=== PATIENT | male | born 1980 | race Caucasian/White ===

== ENCOUNTER 2019-03-21 10:59 | Emergency (ER) | payer OTHER, BC ==
[2019-03-21] MEDS ORDERED: NORMAL SALINE 1000 ML 1,000 ML IV ONE (11:29)
[2019-03-21] MEDS ORDERED: KETOROLAC TROMETHAMINE INJ/PF 30 MG/1 ML SDV IV ONE (11:29)
--- NOTE | 2019-03-21 11:30 | ER Document Report ---
ED Medical Screen (RME) - General Chief Complaint: Flank Pain Stated Complaint: BACK/GROIN PAIN Time Seen by Provider: 03/21/19 11:27 Mode of Arrival: Ambulatory Information source: Patient Notes: 39-year-old male presents to ED for complaint of left flank and groin pain since midnight. He states he had some similar 10 days ago and the time he had prostate-itis and was started on Cipro for 7 days. He states the pain went away but 3 or 4 days after he completed the medicine he came back and is not worse. He is alert oriented respirations regular and unlabored speaking in full sentences. He does have a history of an appendectomy and arthritis. 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 He is alert oriented respirations regular and unlabored with a lot of left flank and groin pain. I have greeted and performed a rapid initial assessment of this patient. A comprehensive ED assessment and evaluation of the patient, analysis of test results and completion of medical decision making process will be conducted by an additional ED providers. Dictation of this chart was performed using voice recognition software; therefore, there may be some unintended grammatical errors. TRAVEL OUTSIDE OF THE [place] IN LAST 30 DAYS: No - Related Data Allergies/Adverse Reactions: No Known Allergies Allergy (Unverified 03/21/19 11:15) Past Medical History - Social History Frequency of alcohol use: None Drug Abuse: None Renal/ Medical History: Denies: Hx Peritoneal Dialysis Physical Exam - Vital signs Vitals: Temp Pulse Resp BP Pulse Ox 97.9 F 58 L 18 171/90 H 98 03/21/19 11:26 03/21/19 11:26 03/21/19 11:26 03/21/19 11:26 03/21/19 11:26 Course - Vital Signs Vital signs: Temp Pulse Resp BP Pulse Ox 97.9 F 58 L 18 171/90 H 98 03/21/19 11:26 03/21/19 11:26 03/21/19 11:26 03/21/19 11:26 03/21/19 11:26
[2019-03-21 12:07] LABS: APPEARANCE,URINE SLIGHTLY-CLOUDY; BILIRUBIN,URINE NEGATIVE (NEGATIVE); CALCIUM OXALATE CRYSTALS,URINE FEW /HPF; GLUCOSE, URINE NEGATIVE (NEGATIVE); KETONES,URINE TRACE mg/dL (NEGATIVE); LEUKOCYTE ESTERASE,URINE NEGATIVE (NEGATIVE); NITRITE,URINE NEGATIVE (NEGATIVE); PROTEIN,URINE 30 mg/dL (NEGATIVE); URINE SPECIFIC GRAVITY 1.021; UROBILINOGEN,URINE NEGATIVE mg/dL (<2.0)
[2019-03-21 12:09] LABS: COLOR,URINE DARK YELLOW
[2019-03-21 12:16] LABS: ABSOLUTE BASOPHILS # (AUTO) 0.1 10^3/uL (0.0-0.2); ABSOLUTE EOSINOPHILS # (AUTO) 0.1 10^3/uL (0.0-0.6); ABSOLUTE MONOCYTES (AUTO) 0.8 10^3/uL (0.1-1.4); BASOPHILS % (AUTO) 0.7 % (0-2); HEMATOCRIT 45.1 % (37.9-51.0); HEMOGLOBIN 15.8 g/dL (13.5-17.0); LYMPHOCYTES % (AUTO) 20.1 % (13-45); MEAN CORPUSCULAR HGB CONC 35.1 g/dL (32.0-36.0); MEAN CORPUSCULAR VOLUME 91 fl (80-97); MONOCYTES % (AUTO) 8.3 % (3-13); PLATELET COUNT 188 10^3/uL (150-450); RED BLOOD COUNT 4.94 10^6/uL (4.35-5.55); SEGMENTED NEUTROPHILS % (AUTO) 69.9 % (42-78); TOTAL CELLS COUNTED % (AUTO) 100 %
[2019-03-21 12:37] LABS: ALANINE AMINOTRANSFERASE 98 U/L (21-72); ALBUMIN 4.5 g/dL (3.5-5.0); ALKALINE PHOSPHATASE 100 U/L (38-126); ANION GAP 10 (5-19); ASPARTATE AMINO TRANSFERASE 80 U/L (17-59); BILIRUBIN,DIRECT 0.4 mg/dL (0.0-0.4); BLOOD UREA NITROGEN 18 mg/dL (7-20); CALCIUM 10.4 mg/dL (8.4-10.2); CARBON DIOXIDE 28 mmol/L (22-30); CHLORIDE 106 mmol/L (98-107); GLUCOSE 136 mg/dL (75-110); SODIUM 144.1 mmol/L (137-145); TOTAL PROTEIN 7.7 g/dL (6.3-8.2)
--- NOTE | 2019-03-21 12:38 | RADIOLOGY REPORT (SQ) ---
EXAM DESCRIPTION: CT ABD/PELVIS NO ORAL OR IV COMPLETED DATE/TIME: 03/21/2019 12:19 pm REASON FOR STUDY: left flank pain hematuria COMPARISON: None. TECHNIQUE: CT scan of the abdomen and pelvis performed without intravenous or oral contrast. Images reviewed with lung, soft tissue, and bone windows. Reconstructed coronal and sagittal MPR images revi ewed. All images stored on PACS. All CT scanners at this facility use dose modulation, iterative reconstruction, and/or weight based d osing when appropriate to reduce radiation dose to as low as reasonably achievable (ALARA). [facility]: Dose Right [facility]: CareDose [facility]: Dose Right [facility]: Teradose 4D [facility]: Smart [employer] RADIATION DOSE: CT Rad equipment meets quality standard of care and radiation dose reduction techniq ues were employed. CTDIvol: 25.6 mGy. DLP: 1614 mGy-cm.mGy. LIMITATIONS: None. FINDINGS: LOWER CHEST: No significant findings. No nodules or infiltrates. NON-CONTRASTED LIVER, SPLEEN, ADRENALS: Evaluation limited by lack of IV contrast. No identified sign ificant masses. Hepatic steatosis. PANCREAS: No masses. No peripancreatic inflammatory changes. GALLBLADDER: No identified stones by CT criteria. No inflammatory changes to suggest cholecystitis. RIGHT KIDNEY AND URETER: No suspicious masses. Assessment limited by lack of IV contrast. No signif icant calcifications. No hydronephrosis or hydroureter. LEFT KIDNEY AND URETER: No suspicious masses. Assessment limited by lack of IV contrast. There is a 2 mm obstructive calculus of the distal third of the left ureter above the UVJ (series 3, image 83) with mild associated left hydronephrosis and hydroureter. AORTA AND RETROPERITONEUM: No aneurysm. No retroperitoneal masses or adenopathy. BOWEL AND PERITONEAL CAVITY: No obvious masses or inflammatory changes. No free fluid. APPENDIX: Normal. PELVIS, BLADDER, AND ABDOMINAL WALL:No abnormal masses. No free fluid. Bladder normal. BONES: No significant findings. OTHER: No other significant finding. IMPRESSION: 1. There is a 2 mm obstructive calculus of the distal third of the left ureter above the UVJ (series 3, image 83) with mild associated left hydronephrosis and hydroureter. No other evidenc e of urinary tract calculus. 2. Hepatic steatosis. COMMENT: Quality ID # [id number]: Final reports with documentation of one or more dose reduction techniques (e.g., Automated exposure control, adjustment of the mA and/or kV according to patient size, use of iterative reconstruction technique) TECHNICAL DOCUMENTATION: JOB ID: [id number] [employer]- All Rights Reserved Reading location - IP/workstation name: [email or web address]
[2019-03-21] MEDS ORDERED: ONDANSETRON 4 MG TAB.RAPDIS PO ONE (14:44)
[2019-03-21] MEDS ORDERED: OXYCODONE-ACETAMINOPHEN 5-325 MG TABLET PO ONE (14:44)
[2019-03-21] MEDS ORDERED: TAMSULOSIN HCL 0.4 MG CAP.SR.24H PO ONE (14:44)
--- NOTE | 2019-03-21 14:56 | ER Document Report ---
ED General - General Chief Complaint: Flank Pain Stated Complaint: BACK/GROIN PAIN Time Seen by Provider: 03/21/19 11:27 Primary Care Provider: ANGY HURTADO MD [SUPERVISOR TOWER] - Follow up as needed LAWANDA HANCOCK NP [NO LOCAL MD] - Follow up as needed CARLOS ALBERTO COMER MD [SUPERVISOR TOWER] - Follow up as needed AMANDA CELIS MD [SUPERVISOR TOWER] - Follow up as needed EUGENE GALEAS MD [NO LOCAL ] - Follow up as needed RICK SOARES DO [Primary Care Provider] - Follow up in 3-5 days Mode of Arrival: Ambulatory Notes: Patient presents emergency department with complaints of left sided groin pain with need for constant void. Reports symptoms started last night. This a.m. he has left lower and middle left flank pain. Denies fever reports some nausea twice a day but denies diarrhea. Reports recent treatment for prostatitis. Reports he finished his Cipro from that. Patient went to [facility] urgent care today they sent him here for possible pyelonephritis. TRAVEL OUTSIDE OF THE [place] IN LAST 30 DAYS: No - HPI Onset: Yesterday Onset/Duration: Persistent Severity: Severe Pain Level: 5 Associated symptoms: Nausea, Vomiting Exacerbated by: Denies - Related Data Allergies/Adverse Reactions: No Known Allergies Allergy (Unverified 03/21/19 11:15) Past Medical History - General Information source: Patient - Social History Smoking Status: Former Smoker Cigarette use (# per day): No Frequency of alcohol use: None Drug Abuse: None Occupation: Director of [employer] Lives with: Family Family History: Reviewed & Not Pertinent Patient has suicidal ideation: No Patient has homicidal ideation: No Renal/ Medical History: Reports: Other - prostatitis. Denies: Hx Peritoneal Dialysis Past Surgical History: Reports: Hx Appendectomy Review of Systems - Review of Systems Notes: -Review HPI for review of systems., All other systems negative Physical Exam - Vital signs Vitals: Temp Pulse Resp BP Pulse Ox 97.9 F 58 L 18 171/90 H 98 03/21/19 11:26 03/21/19 11:26 03/21/19 11:26 03/21/19 11:26 03/21/19 11:26 - Notes Notes: PHYSICAL EXAMINATION: GENERAL: Well-appearing and in no acute distress HEAD: Atraumatic, normocephalic. EYES: Pupils equal round and reactive to light, extraocular movements intact, sclera anicteric, conjunctiva are normal. ENT: nares patent, oropharynx clear without exudates. Moist mucous membranes. NECK: Normal range of motion, supple without lymphadenopathy LUNGS: CTAB and equal. No wheezes rales or rhonchi. HEART: Regular rate and rhythm without murmurs ABDOMEN: Soft, no tenderness. No guarding, no rebound BACK: Left Flank pain EXTREMITIES: Normal range of motion, no pitting edema. No cyanosis. NEUROLOGICAL: Cranial nerves grossly intact. Normal sensory/motor exams. PSYCH: Normal mood, normal affect. SKIN: Warm, Dry, normal turgor, no rashes or lesions noted Course - Re-evaluation Re-evalutation: 03/21/19 15:29 CT shows patient with 2 mm obstructive calculus of the distal third of the left ureter above the UVJ. Mild associated left hydronephrosis and hydroureter no other evidence of urinary tract calculus, also hepatic steatosis . Attempted to obtain urology appointment for patient without success I called several practices. One practice did not have appointments till May. Patient was instructed to follow-up with his primary care provider to help schedule urology appointment. Consult to Dr. Crenshaw reviewed labs CT agrees patient can safely be discharged. Patient updated on plan of care verbalized understanding no distress at this time. - Vital Signs Vital signs: Temp Pulse Resp BP Pulse Ox 97.7 F 66 18 144/88 H 96 03/21/19 16:42 03/21/19 16:42 03/21/19 16:42 03/21/19 16:42 03/21/19 16:42 - Laboratory Result Diagrams: 03/21/19 11:58 03/21/19 11:58 Laboratory results interpreted by me: 03/21/19 03/21/19 11:50 11:58 Glucose 136 H Calcium 10.4 H AST 80 H ALT 98 H Urine Protein 30 H Urine Ketones TRACE H Urine Blood LARGE H - Diagnostic Test Radiology reviewed: Image reviewed, Reports reviewed - 2 mm obstructive calculus distal third left ureter above the UVJ with fatty liver Discharge - Discharge Clinical Impression: Kidney stone on left side, Hepatic steatosis Condition: Stable Disposition: HOME, SELF-CARE Instructions: Antinausea Medication ([facility]), Flomax ([facility]), Kidney Stone ([facility]), Oral Narcotic Medication ([facility]) Additional Instructions: *You have been evaluated for flank pain kidney stone, hepatic steatosis *Take medication as prescribed *Follow up with a urologist within 1 week *Return to ED for worsening condition, changes, needs, fever, difficulty urinating, increased pain Monitor your blood pressure. Your blood pressure was elevated today. This may be because you were anxious, in pain or because you need medication. It is i mportant to follow up with your primary care provider for full evaluation. Prescriptions: Ondansetron [Zofran Odt 4 mg Tablet] 1 - 2 tab PO Q4H #10 tab.rapdis Oxycodone HCl/Acetaminophen [Percocet 5-325 mg Tablet] 1 - 2 tab PO ASDIR PRN #15 tablet PRN Reason: Tamsulosin HCl [Flomax 0.4 mg Cap.sr] 0.4 mg PO DAILY #7 cap.sr.24h Forms: Elevated Blood Pressure Referrals: RICK SOARES DO [Primary Care Provider] - Follow up in 3-5 days EUGENE GALEAS MD [NO LOCAL MD] - Follow up as needed LAWANDA HANCOCK NP [NO LOCAL MD] - Follow up as needed ANGY HURTADO MD [JOSE HOLM] - Follow up as needed CARLOS ALBERTO COMER MD [JOSE HOLM] - Follow up as needed AMANDA CELIS MD [SUPERVISOR TOWER] - Follow up as needed
[2019-03-21 16:43] VITALS: BP 144/88
== END 2019-03-21 16:43 | disposition home or self-care (01) ==
LOC: ER 10:59
DX: N20.0 Calculus of kidney (principal); K76.0 Fatty (change of) liver, not elsewhere classified; R10.9 Unspecified abdominal pain; R11.0 Nausea
CPT/HCPCS: 99284; 96361; 96374; 36415; 87086; 85025; 87088; 80053; 81001; 87186; 74176; S0119; J1885; J7030

== ENCOUNTER 2019-11-03 16:42 | Emergency (ER) | payer OTHER, BC ==
[2019-11-03] MEDS ORDERED: TETRACAINE HCL 0.5% OPH SOLN 4 ML OD ONE (17:28)
--- NOTE | 2019-11-03 17:29 | ER Document Report ---
ED Medical Screen (RME) - General Chief Complaint: Eye Injury Stated Complaint: SUPER GLUE GOT IN RIGHT EYE Time Seen by Provider: 11/03/19 17:26 Primary Care Provider: RICK SOARES DO [Primary Care Provider] - Follow up as needed Mode of Arrival: Ambulatory Information source: Patient Notes: 39-year-old male patient presents emergency department chief complaint of foreign body in eye. Patient reports that he got superglue into his right eye approximately 3 hours ago at 2:30 PM. He states he flushed his eye out however he states he is now having blurred vision and burning and stinging to the eye. Denies use of contacts. He does wear corrective lenses. I have greeted and performed a rapid initial assessment of this patient. A comprehensive ED assessment and evaluation of the patient, analysis of test results and completion of the medical decision making process will be conducted by additional ED providers. I have specifically instructed the patient or family members with the patient to immediately return to any nursing staff should anything change in the patient's condition or with their chief complaint. TRAVEL OUTSIDE OF THE [place] IN LAST 30 DAYS: No - Related Data Allergies/Adverse Reactions: No Known Allergies Allergy (Unverified 03/21/19 11:15) Home Medications: meloxicam Past Medical History - Social History Frequency of alcohol use: None Drug Abuse: None Renal/ Medical History: Denies: Hx Peritoneal Dialysis Past Surgical History: Reports: Hx Appendectomy Physical Exam - Vital signs Vitals: Temp Pulse Resp BP Pulse Ox 98.3 F 69 14 144/89 H 98 11/03/19 17:21 11/03/19 17:21 11/03/19 17:21 11/03/19 17:21 11/03/19 17:21 Course - Vital Signs Vital signs: Temp Pulse Resp BP Pulse Ox 98.3 F 69 14 144/89 H 98 11/03/19 17:21 11/03/19 17:21 11/03/19 17:21 11/03/19 17:21 11/03/19 17:21 Doctor's Discharge - Discharge Referrals: RIKC SOARES DO [Primary Care Provider] - Follow up as needed
--- NOTE | 2019-11-03 20:10 | ER Document Report ---
ED Eye Complaint - General Chief Complaint: Eye Injury Stated Complaint: SUPER GLUE GOT IN RIGHT EYE Time Seen by Provider: 11/03/19 17:26 Primary Care Provider: RICK SOARES DO [Primary Care Provider] - Follow up as needed Mode of Arrival: Ambulatory TRAVEL OUTSIDE OF THE [place] IN LAST 30 DAYS: No - Related Data Allergies/Adverse Reactions: No Known Allergies Allergy (Unverified 03/21/19 11:15) Home Medications: meloxicam Past Medical History - General Information source: Patient - Social History Smoking Status: Unknown if Ever Smoked Frequency of alcohol use: None Drug Abuse: None Family History: Reviewed & Not Pertinent Patient has suicidal ideation: No Patient has homicidal ideation: No Renal/ Medical History: Denies: Hx Peritoneal Dialysis Past Surgical History: Reports: Hx Appendectomy Physical Exam - Vital signs Vitals: Temp Pulse Resp BP Pulse Ox 98.3 F 69 14 144/89 H 98 11/03/19 17:21 11/03/19 17:21 11/03/19 17:21 11/03/19 17:21 11/03/19 17:21 - HEENT Visual acuity- Right eye: 20/25 Visual acuity- Left eye: 20/30 Visual acuity- Both eyes: 20/20 Corrective lenses worn: Yes Course - Vital Signs Vital signs: Temp Pulse Resp BP Pulse Ox 98.3 F 69 14 144/89 H 98 11/03/19 17:21 11/03/19 17:21 11/03/19 17:21 11/03/19 17:21 11/03/19 17:21 Discharge - Discharge Referrals: RICK SOARES DO [Primary Care Provider] - Follow up as needed
--- NOTE | 2019-11-03 21:14 | ER Document Report ---
ED Eye Complaint - General Chief Complaint: Eye Injury Stated Complaint: SUPER GLUE GOT IN RIGHT EYE Time Seen by Provider: 11/03/19 17:26 Primary Care Provider: HOLLIE GARCIA MD [ACTIVE STAFF] - Follow up tomorrow Mode of Arrival: Ambulatory Notes: Patient is a 39-year-old male that comes to the emergency department for chief complaint of pain and irritation to the right eye. He states that he was gluing a bouncing pen and the gluing hole blew open causing a marino of air and glue splattered mainly on his nunez but a small amount also got into his eye. He states he wiped his eye with a towel and then irrigated under a sink for 10 minutes (he use a timer for this). He states he still has irritation, occasionally blurry vision, and he has the sensation that something is still stuck in his eye. He denies visual loss, denies any other injuries or any other complaints. He wears glasses but not contacts. TRAVEL OUTSIDE OF THE [place] IN LAST 30 DAYS: No - Related Data Allergies/Adverse Reactions: No Known Allergies Allergy (Verified 11/03/19 21:08) Home Medications: meloxicam Past Medical History - General Information source: Patient - Social History Smoking Status: Unknown if Ever Smoked Frequency of alcohol use: None Drug Abuse: None Lives with: Family Family History: Reviewed & Not Pertinent Patient has suicidal ideation: No Patient has homicidal ideation: No Renal/ Medical History: Denies: Hx Peritoneal Dialysis Past Surgical History: Reports: Hx Appendectomy - Immunizations Immunizations up to date: Yes Hx Diphtheria, Pertussis, Tetanus Vaccination: Yes Review of Systems - Review of Systems Constitutional: No symptoms reported EENT: See HPI Cardiovascular: No symptoms reported Respiratory: No symptoms reported Gastrointestinal: No symptoms reported Genitourinary: No symptoms reported Male Genitourinary: No symptoms reported Musculoskeletal: No symptoms reported Skin: No symptoms reported Hematologic/Lymphatic: No symptoms reported Neurological/Psychological: No symptoms reported Physical Exam - Vital signs Vitals: Temp Pulse Resp BP Pulse Ox 98.3 F 69 14 144/89 H 98 11/03/19 17:21 11/03/19 17:21 11/03/19 17:21 11/03/19 17:21 11/03/19 17:21 - Notes Notes: GENERAL: Alert, interacts well. No acute distress. HEAD: Normocephalic, atraumatic. EYES: Pupils equal, round, and reactive to light. Extraocular movements intact. Very mild injection of the right sclera, left is clear. No discharge. No superficial foreign body.no obvious abnormality on Acharya lamp but on slit lamp there is a tiny corneal abrasion at the 10 o'clock position. Normal pH. Unremarkable visual acuity. Negative Edna sign. ENT: Oral mucosa moist, tongue midline. Oropharynx unremarkable. Airway patent. Nares patent, no nasal septal hematoma, TM's intact. NECK: Full range of motion. Supple. Trachea midline. LUNGS: Clear to auscultation bilaterally, no wheezes, rales, or rhonchi. No respiratory distress. HEART: Regular rate and rhythm. No murmur ABDOMEN: Soft, non-tender. Non-distended. EXTREMITIES: Moves all 4 extremities spontaneously. No edema, normal radial and dorsalis pedis pulses bilaterally. No cyanosis. BACK: no cervical, thoracic, lumbar midline tenderness. No saddle anesthesia, normal distal neurovascular exam. Moves all extremities in full range of motion. NEUROLOGICAL: Alert and oriented x3. Normal speech. Cranial nerves II through XII grossly intact. PSYCH: Normal affect, normal mood. SKIN: Warm, dry, normal turgor. No rashes or lesions noted. - HEENT Visual acuity- Right eye: 20/25 Visual acuity- Left eye: 20/30 Visual acuity- Both eyes: 20/20 Corrective lenses worn: Yes Course - Re-evaluation Re-evalutation: pH checked and normal. Patient has a tiny corneal abrasion at the 10 o'clock position in the right eye without signs of globe rupture or any other concerning findings. No retained foreign bodies noted. Placed on antibiotics, discussed expectations, follow-up, return precautions. Patient states appreciation and agreement. - Vital Signs Vital signs: Temp Pulse Resp BP Pulse Ox 98.2 F 68 20 142/83 H 96 11/03/19 21:44 11/03/19 21:44 11/03/19 21:44 11/03/19 21:44 11/03/19 21:44 Discharge - Discharge Clinical Impression: Acute right eye pain Corneal abrasion Qualifiers: Encounter type: initial encounter Laterality: right Qualified Code(s): S05.01XA - Injury of conjunctiva and corneal abrasion without foreign body, right eye, initial encounter Condition: Stable Disposition: HOME, SELF-CARE Additional Instructions: There is no foreign body seen, there is a very small corneal abrasion noted on your evaluation. No other concerning findings are seen. Use the antibiotic eyedrops as prescribed, 1 drop 4 times a day for 5 days. Follow-up with the ophthalmology referral listed below, call tomorrow. Return if you worsen including severe worsening pain, swelling, discolored drainage, loss of vision, or any other concerning or worsening symptoms. Forms: Return to Work Referrals: HOLLIE GARCIA MD [ACTIVE STAFF] - Follow up tomorrow
[2019-11-03] MEDS ORDERED: KETOROLAC TROMETHAMINE 0.45% 4 DROP/0.4 ML DROPERETTE OD ONE (21:17)
[2019-11-03] MEDS ORDERED: POLYMYXIN B SULFATE/TMP OPH SOLN (10 ML/ER DISP) OD PRN (21:17)
[2019-11-03 21:43] VITALS: BP 142/83
== END 2019-11-03 21:46 | disposition home or self-care (01) ==
LOC: ER 16:42
DX: S05.01XA Injury of conjunctiva and corneal abrasion without foreign body, right eye, initial encounter (principal); X58.XXXA Exposure to other specified factors, initial encounter; Y93.89 Activity, other specified; Z79.899 Other long term (current) drug therapy
CPT/HCPCS: 99283; J3490

== ENCOUNTER 2020-05-17 10:20 | Emergency (ER) | payer OTHER, BC ==
[2020-05-17] MEDS ORDERED: KETOROLAC TROMETHAMINE 60 MG/2 ML SDV IM ONE (10:59)
[2020-05-17] MEDS ORDERED: NORMAL SALINE 1000 ML 1,000 ML IV PRN (10:59)
--- NOTE | 2020-05-17 11:04 | ER Document Report ---
ED Medical Screen (RME) - General Chief Complaint: Possible Kidney Stone Stated Complaint: RIGHT FLANK PAIN Time Seen by Provider: 05/17/20 10:59 Mode of Arrival: Ambulatory Information source: Patient TRAVEL OUTSIDE OF THE [place] IN LAST 30 DAYS: No - HPI Patient complains to provider of: Right flank pain Onset: This morning Onset/Duration: Waxing and waning - This 40-year-old male presents to the emergency room today stating he has a history of kidney stones and he feels as though he is having another one although this pain is little bit more severe than the last 1 pain is radiating around from the right flank to the groin. - Related Data Allergies/Adverse Reactions: No Known Allergies Allergy (Verified 05/17/20 11:00) Past Medical History - Social History Chew tobacco use (# tins/day): No Frequency of alcohol use: None Drug Abuse: None Renal/ Medical History: Denies: Hx Peritoneal Dialysis Musculoskeltal Medical History: Reports Hx Arthritis Past Surgical History: Reports: Hx Appendectomy - Immunizations Immunizations up to date: Yes Hx Diphtheria, Pertussis, Tetanus Vaccination: Yes Physical Exam - Abdominal Tenderness: Nontender Notes: Right flank pain with radiation to the groin.
[2020-05-17 12:02] LABS: ABSOLUTE BASOPHILS # (AUTO) 0.1 10^3/uL (0.0-0.2); ABSOLUTE EOSINOPHILS # (AUTO) 0.1 10^3/uL (0.0-0.6); ABSOLUTE LYMPHOCYTES (AUTO) 1.8 10^3/uL (0.5-4.7); ABSOLUTE MONOCYTES (AUTO) 0.8 10^3/uL (0.1-1.4); ABSOLUTE NEUT (AUTO) 6.4 10^3/uL (1.7-8.2); BASOPHILS % (AUTO) 0.8 % (0-2); EOSINOPHILS % (AUTO) 0.6 % (0-6); HEMATOCRIT 45.4 % (37.9-51.0); HEMOGLOBIN 16.3 g/dL (13.5-17.0); LYMPHOCYTES % (AUTO) 19.5 % (13-45); MEAN CORPUSCULAR HEMOGLOBIN 32.3 pg (27.0-33.4); MEAN CORPUSCULAR HGB CONC 35.8 g/dL (32.0-36.0); MEAN CORPUSCULAR VOLUME 90 fl (80-97); MONOCYTES % (AUTO) 8.5 % (3-13); PLATELET COUNT 154 10^3/uL (150-450); RED BLOOD COUNT 5.03 10^6/uL (4.35-5.55); RED CELL DISTRIBUTION WIDTH 13.4 % (11.5-14.0); SEGMENTED NEUTROPHILS % (AUTO) 70.6 % (42-78); TOTAL CELLS COUNTED % (AUTO) 100 %
[2020-05-17 12:21] LABS: ALBUMIN 3.8 g/dL (3.5-5.0); ALKALINE PHOSPHATASE 80 U/L (38-126); ANION GAP 6 (5-19); ASPARTATE AMINO TRANSFERASE 65 U/L (17-59); BILIRUBIN,DIRECT 0.1 mg/dL (0.0-0.4); BILIRUBIN,TOTAL 0.9 mg/dL (0.2-1.3); BLOOD UREA NITROGEN 12 mg/dL (7-20); CALCIUM 8.2 mg/dL (8.4-10.2); CARBON DIOXIDE 22 mmol/L (22-30); CHLORIDE 110 mmol/L (98-107); GLUCOSE 153 mg/dL (75-110); TOTAL PROTEIN 6.8 g/dL (6.3-8.2)
[2020-05-17 12:25] LABS: AMORPHOUS SEDIMENT,URINE 1+ /HPF; APPEARANCE,URINE TURBID; BILIRUBIN,URINE NEGATIVE (NEGATIVE); COLOR,URINE YELLOW; GLUCOSE, URINE NEGATIVE (NEGATIVE); KETONES,URINE TRACE mg/dL (NEGATIVE); LEUKOCYTE ESTERASE,URINE NEGATIVE (NEGATIVE); NITRITE,URINE NEGATIVE (NEGATIVE); PROTEIN,URINE 100 mg/dL (NEGATIVE); URINE SPECIFIC GRAVITY 1.027; UROBILINOGEN,URINE NEGATIVE mg/dL (<2.0)
[2020-05-17] MEDS ORDERED: HYDROMORPHONE HCL INJ/PF 2 MG/ML AMPULE IV ONE (12:52)
[2020-05-17] MEDS ORDERED: ONDANSETRON HCL INJ/PF 4 MG/2 ML SDV IV ONE (12:53)
--- NOTE | 2020-05-17 12:54 | ER Document Report ---
ED GI/ - General Chief Complaint: Possible Kidney Stone Stated Complaint: RIGHT FLANK PAIN Time Seen by Provider: 05/17/20 10:59 Mode of Arrival: Ambulatory Notes: 40-year-old man presents to the emergency department with complaint of right flank pain radiating into the right abdomen and groin area. States the pain began earlier today and is been severe. He has had a history of kidney stones in the past. He also notes some nausea without vomiting. He rates the pain 10/10. The patient is on his knees on the floor when this examination began. TRAVEL OUTSIDE OF THE [place] IN LAST 30 DAYS: No - Related Data Allergies/Adverse Reactions: No Known Allergies Allergy (Verified 05/17/20 11:00) Past Medical History - General Information source: Patient - Social History Smoking Status: Never Smoker Chew tobacco use (# tins/day): No Frequency of alcohol use: None Drug Abuse: None Family History: Reviewed & Not Pertinent Patient has homicidal ideation: No Renal/ Medical History: Reports: Hx Kidney Stones. Denies: Hx Peritoneal Dialysis Musculoskeletal Medical History: Reports Hx Arthritis Past Surgical History: Reports: Hx Appendectomy - Immunizations Immunizations up to date: Yes Hx Diphtheria, Pertussis, Tetanus Vaccination: Yes Review of Systems - Review of Systems Notes: Constitutional: Negative for fever. HENT: Negative for sore throat. Eyes: Negative for visual changes. Cardiovascular: Negative for chest pain. Respiratory: Negative for shortness of breath. Gastrointestinal: + Right sided abdominal pain, + nausea Genitourinary: Negative for dysuria. Musculoskeletal: + Right flank pain Skin: Negative for rash. Neurological: Negative for headaches, weakness or numbness. 10 point ROS negative except as marked above and in HPI. Physical Exam - Notes Notes: PHYSICAL EXAMINATION: Physical Exam: General: Well-nourished well-developed 40-year-old man in moderate distress secondary to right flank pain. HEENT: NC/AT, pupils equal round and reactive to light, MM moist,nares clear, oropharynx clear, airway patent Neck: supple, no adenopathy, no masses. Good range of motion Lungs: Clear to A&P, no wheezes rales or rhonchi. CVS: Regular rate and rhythm no murmur gallop or rub Abdomen: Soft, active, nontender, no masses, no hepatosplenomegaly Ext: No edema, clubbing or cyanosis. Neuro: Alert and responsive, moving all 4 extremities on command, cranial nerves intact, no focal findings Skin: Intact no open lesions, no rash PSYCH: Normal mood, normal affect. Course - Re-evaluation Re-evalutation: 05/17/20 15:31 Patient was given hydromorphone 1 mg IV and Zofran 4 mg IV with some improvement of his symptoms. He had been given Toradol prior to the administration of these medications and had no relief of the pain or nausea. CT scan of the abdomen and pelvis without IV contrast reveals a 2 mm stone in the right ureter at the right ureterovesical junction. 05/17/20 15:32 I have discussed the findings of the CT with the patient and explained that he has a small stone at the base of the bladder posteriorly. Minimal ureterectasis. I have explained that he is likely to passed a stone. We will be sending him home with pain medication, Flomax, Zofran. Patient is in agreement with that plan. - Laboratory Result Diagrams: 05/17/20 11:45 05/17/20 11:45 Laboratory results interpreted by me: 05/17/20 05/17/20 11:22 11:45 Chloride 110 H Glucose 153 H Calcium 8.2 L AST 65 H ALT 87 H Urine Protein 100 H Urine Ketones TRACE H Urine Blood MODERATE H - Diagnostic Test Radiology reviewed: Image reviewed, Reports reviewed - CT abdomen and pelvis with out contrast: 2 mm right sided stone the neurovascular junction, mild right-sided hydronephrosis. Discharge - Discharge Clinical Impression: Renal colic on right side, Right nephrolithiasis, Hydronephrosis, right Condition: Good Disposition: HOME, SELF-CARE Instructions: Kidney Stone ([facility]), Oral Narcotic Medication ([facility]), Toradol Injection ([facility]) Additional Instructions: You were seen in the emergency department today with pain on the right side related to kidney stone. It is a 2 mm stone already located behind the bladder. There is a high likelihood that you will passed a stone. Please increase your fluid intake and use the medications as prescribed. You have been given prescriptions for [place], Flomax, and Zofran. If you are unable to control your symptoms with these medications or if there are new and concerning difficulties you may return to the emergency department for further evaluation and treatment. HOME CARE INSTRUCTIONS & INFORMATION: Thank you for choosing us for your medical needs. We hope you're satisfied with the care you received. After you leave, you must properly care for your problem and, at the same time, observe it s progress. Any condition can change. Some illnesses can change rapidly over hours or days. If your condition worsens, return to the Emergency Department or see your physician promptly. ABOUT YOUR X-RAYS AND EKG'S: If you had an EKG or X-rays taken, they have been read by the Emergency Physician. The X-rays and EKG's will also be read by a Radiologist or Coding Advisor within 24 hours. If discrepancies are noted, you will be notified by telephone. Please be certain the ED has a correct telephone number & address where you can be reached. Also, realize that some fractures or abnormalities do not show up on initial X-rays. If your symptoms continue, see your physician. ABOUT YOUR LABORATORY TEST: If you had laboratory tests, the results have been reviewed by the Emergency Physician. Some test results (for example cultures) may not be available for several days. You will be contacted if any test result shows you need additional treatment. Please be certain the ED has a correct telephone number and address where you can be reached. ABOUT YOUR MEDICATIONS: You will receive instructions on how to take your medicine on the prescription label you receive. Additional information may be provided by the Pharmacy. If you have questions afterwards, call the ED for clarification or further instructions. Some prescribed medications may cause drowsiness. Do not perform tasks such as driving a car or operating machinery without consulting your Pharmacist. If you feel you need a refill of pain medication, your condition will need re-evaluation. Please do not call for a refill of any medication. ABOUT YOUR SIGNATURE: Signature of this document acknowledges to followin. Understanding that you received emergency treatment and that you may be released before al medical problems are known or treated. Please be certain the ED has a correct phone number & address where you can be reached. 2. Acknowledgement that you will arrange for follow-up care as recommended. 3. Authorization for the Emergency Physician to provide information to your follow-up Physician in order to maximize your care. AT ANY TIME, IF YOUR SYMPTOMS CHANGE SIGNIFICANTLY OR WORSEN OR YOU DEVELOP NEW SYMPTOMS, RETURN TO THE EMERGENCY DEPARTMENT IMMEDIATELY FOR RE-EVALUATION. OUR GOAL IS TO PROVIDE EXCELLENT MEDICAL CARE! WE HOPE THAT WE HAVE MET YOUR EXPECTATIONS DURING YOUR EMERGENCY DEPARTMENT VISIT AND THAT YOU FEEL YOU HAVE RECEIVED EXCELLENT CARE! Prescriptions: Tamsulosin HCl [Flomax 0.4 mg Cap.sr] 0.4 mg PO DAILY #7 cap.sr.24h Hydrocodone/Acetaminophen [[place] 5-325 mg Tablet] 1 tab PO Q6 PRN #10 tablet PRN Reason: Ondansetron [Zofran Odt 4 mg Tablet] 1 - 2 tab PO Q4H PRN #15 tab.rapdis PRN Reason: For Nausea/Vomiting
--- NOTE | 2020-05-17 14:57 | RADIOLOGY REPORT (SQ) ---
EXAM DESCRIPTION: CT ABD/PELVIS NO ORAL OR IV IMAGES COMPLETED DATE/TIME: 05/17/2020 2:44 pm REASON FOR STUDY: Right flank COMPARISON: 03/21/2019 TECHNIQUE: CT scan of the abdomen and pelvis performed without intravenous or oral contrast. Images reviewed with lung, soft tissue, and bone windows. Reconstructed coronal and sagittal MPR images revi ewed. All images stored on PACS. All CT scanners at this facility use dose modulation, iterative reconstruction, and/or weight based d osing when appropriate to reduce radiation dose to as low as reasonably achievable (ALARA). [facility]: Dose Right [facility]: CareDose [facility]: Dose Right [facility]: Teradose 4D [facility]: Smart Tagboard RADIATION DOSE: CT Rad equipment meets quality standard of care and radiation dose reduction techniq ues were employed. CTDIvol: 18.5 mGy. DLP: 1136 mGy-cm.mGy. LIMITATIONS: None. FINDINGS: LOWER CHEST: No significant findings. No nodules or infiltrates. NON-CONTRASTED LIVER, SPLEEN, ADRENALS: Evaluation limited by lack of IV contrast. No identified sign ificant masses. PANCREAS: No masses. No peripancreatic inflammatory changes. GALLBLADDER: No identified stones by CT criteria. No inflammatory changes to suggest cholecystitis. RIGHT KIDNEY AND URETER: No suspicious masses. Assessment limited by lack of IV contrast. No signif icant calcifications. Mild hydronephrosis with minimal ureterectasis on the basis of a 2 mm rounded right ureterovesicular junction ureterolith. LEFT KIDNEY AND URETER: No suspicious masses. Assessment limited by lack of IV contrast. No signifi cant calcifications. No hydronephrosis or hydroureter. AORTA AND RETROPERITONEUM: No aneurysm. No retroperitoneal masses or adenopathy. BOWEL AND PERITONEAL CAVITY: No obvious masses or inflammatory changes. No free fluid. APPENDIX: Surgically absent. PELVIS, BLADDER, AND ABDOMINAL WALL:No abnormal masses. No free fluid. Bladder normal. BONES: No significant findings. OTHER: No other significant finding. IMPRESSION: Mild right-sided hydronephrosis with minimal ureterectasis on the basis of a 2 mm rounde d right ureterovesicular junction ureterolith. COMMENT: Quality ID # [id number]: Final reports with documentation of one or more dose reduction techniques (e.g., Automated exposure control, adjustment of the mA and/or kV according to patient size, use of iterative reconstruction technique) TECHNICAL DOCUMENTATION: JOB ID: [id number] 2010 Note- All Rights Reserved Reading location - IP/workstation name: [email or web address]
[2020-05-17 15:58] VITALS: BP 132/68
== END 2020-05-17 17:02 | disposition home or self-care (01) ==
LOC: ER 10:20
DX: N20.0 Calculus of kidney (principal); N13.30 Unspecified hydronephrosis; R10.9 Unspecified abdominal pain; R11.0 Nausea; Z87.442 Personal history of urinary calculi
CPT/HCPCS: 99284; 96372; 96361; 96374; 96375; 36415; 85025; 80053; 81001; 74176; J1885; J1170; J2405; J7030